=== PATIENT | female | born 1955 ===

== ENCOUNTER 2021-10-03 08:36 | Outpatient (CLI) | payer MEDICARE, SELFPAY ==
--- NOTE | 2021-10-03 08:30 | RT.EKG_ITS ---
APPROVED REPORT Exam: Resting ECG Reason for Exam: SD Patient Location: O HR:60 bpm ECG Measurements Heart Rate 60 AXIS NJ 177 P 70 QRSd 106 QRS 5 QT 422 T 8 QTc 422 Conclusion Sinus rhythm...normal P axis, V-rate 50- 99 Normal Electrocardiogram
== END 2021-10-03 08:37 | disposition home or self-care (01) ==
LOC: DI.CARD 08:37
PROVIDERS: Visit Provider Internal Medicine Cardiovascular Disease
DX: I21.4 Non-ST elevation (NSTEMI) myocardial infarction (principal); I21.9 Acute myocardial infarction, unspecified
CPT/HCPCS: 93010

== ENCOUNTER → 2021-10-03 13:40 | Outpatient (BNVA) | payer MEDICARE, SELFPAY | PROVIDERS: PCP Nurse Practitioner Family; Referring Provider Nurse Practitioner Family; Visit Provider Internal Medicine Cardiovascular Disease | DX: I10 Essential (primary) hypertension (principal); I70.90 Unspecified atherosclerosis | CPT/HCPCS: 93005; 99202; 99203 ==

== ENCOUNTER → 2022-10-02 13:17 | Outpatient (BNVA) | payer MEDICARE, SELFPAY | PROVIDERS: PCP Nurse Practitioner Family; Referring Provider Nurse Practitioner Family; Visit Provider Internal Medicine Cardiovascular Disease | DX: I25.10 Atherosclerotic heart disease of native coronary artery without angina pectoris (principal); Z95.5 Presence of coronary angioplasty implant and graft | CPT/HCPCS: 99213 ==

== ENCOUNTER → 2023-10-01 13:35 | Outpatient (BNVA) | payer MEDICARE, SELFPAY | PROVIDERS: PCP Family Medicine; Referring Provider Nurse Practitioner Family; Visit Provider Internal Medicine Cardiovascular Disease | DX: I70.90 Unspecified atherosclerosis (principal) | CPT/HCPCS: 99213 ==

== ENCOUNTER 2024-10-13 09:12 | Outpatient (CLI) | payer MEDICARE, SELFPAY ==
--- NOTE | 2024-10-13 09:00 | RT.EKG_ITS ---
APPROVED REPORT Exam: Resting ECG Reason for Exam: follow up Patient Location: O HR:66 bpm ECG Measurements Heart Rate 66 AXIS VA 189 P 40 QRSd 99 QRS 15 QT 418 T 27 QTc 438 Conclusion Sinus rhythm...normal P axis, V-rate 50- 99 Normal Electrocardiogram
== END 2024-10-13 09:13 | disposition home or self-care (01) ==
LOC: DI.CARD 09:14
PROVIDERS: PCP Family Medicine; Referring Provider Family Medicine; Visit Provider Internal Medicine Cardiovascular Disease
DX: I70.90 Unspecified atherosclerosis (principal)
CPT/HCPCS: 93010

== ENCOUNTER → 2024-10-13 09:12 | Outpatient (BNVA) | payer MEDICARE, SELFPAY | PROVIDERS: PCP Family Medicine; Referring Provider Family Medicine; Visit Provider Internal Medicine Cardiovascular Disease | DX: I70.90 Unspecified atherosclerosis (principal); I25.10 Atherosclerotic heart disease of native coronary artery without angina pectoris | CPT/HCPCS: 99213; 93005 ==